=== PATIENT | male | born 1975 | race Caucasian/White ===

== ENCOUNTER → 2016-05-19 | Outpatient (CLI) | payer OTHER ==
--- NOTE | 2016-05-22 13:32 | EEG ---
DATE OF SERVICE: 05/19/2016 INDICATIONS FOR EXAMINATION: Syncope. AGE: 41Y DESCRIPTION OF PROCEDURE: This EEG was performed using a 21 channel digital electroencephalograph, following international 10-20 system. DESCRIPTION OF THE RECORDING: From the beginning of the tracing, with the patient's eyes closed, the background rhythm was mostly consisting of 9 Hz alpha frequency in the posterior occipital leads. No obvious asymmetry was seen. Photic stimulation was performed with good driving response seen. No pathological waves were elicited. Occasional movement artifacts and muscle artifacts are seen. Hyperventilation was performed with a mild buildup of amplitude seen. Again no pathological waves were elicited. The patient remains awake throughout the tracing. No epileptiform discharges were seen. His EKG lead showed regular rate and rhythm. INTERPRETATION: This awake EEG can be considered within normal limits. There was no asymmetry seen. No epileptiform discharges were noticed. The absence of epileptiform discharges does not rule out the diagnosis of epilepsy, therefore, clinical correlation is recommended.
== END | disposition home or self-care (01) ==
LOC: NEUROMAIN 09:28
PROVIDERS: ATTEND Family Medicine
DX: R55 Syncope and collapse (principal); R39.81 Functional urinary incontinence
CPT/HCPCS: 95819